=== PATIENT | female | born 1975 | race Caucasian/White ===

== ENCOUNTER 2022-01-20 07:12 | Emergency (ER) | payer OTHER ==
[~2022-01-20] VITALS: Ht 152.4 cm; Wt 54.4 kg
[2022-01-20] MEDS ORDERED: PERCOCET 10-321 EACH PO (07:36)
== END 2022-01-20 15:14 | disposition home or self-care (01) ==
LOC: ER 07:12
DX: C16.9 Malignant neoplasm of stomach, unspecified (principal); R10.84 Generalized abdominal pain